=== PATIENT | female | born 1945 | race Caucasian/White ===

== ENCOUNTER → 2016-11-19 | Outpatient (CLI) | payer MEDICARE ==
[~2016-11-19] MED LIST: CARAFATE1 G1 PO; CELEXA20 MG PO; COUMADIN5 M2 PO; LISINOPRIL-HYDR1 TA1 PO; LISINOPRIL40 MG PO; NORVASC10 MG PO; ORETIC25 MG PO; PRILOSEC40 M1 PO; VITAMIN D31000 IU PO; ZOCOR40 MG PO
== END | disposition home or self-care (01) ==
LOC: RAD 10:36
DX: R06.02 Shortness of breath (principal); I10 Essential (primary) hypertension; Z86.79 Personal history of other diseases of the circulatory system

== ENCOUNTER → 2018-05-16 | Outpatient (CLI) | payer MEDICARE ==
[~2018-05-16] MED LIST changes: +ASPIRIN81 M1 PO; +CITALOPRAM20 MG PO; +DILTIAZEM CD240 MG PO; +LISINOPRIL20 MG PO; +ZESTORETIC 20-1 EACH PO
== END | disposition home or self-care (01) ==
LOC: CARD 11:32
DX: I48.91 Unspecified atrial fibrillation (principal); I65.1 Occlusion and stenosis of basilar artery; I51.7 Cardiomegaly

== ENCOUNTER 2020-05-27 21:10 | Emergency (ER) | payer MEDICARE ==
[~2020-05-27] VITALS: Ht 160 cm; Wt 98.9 kg
[2020-05-27 21:14] VITALS: BP 138/64
[2020-05-27] MEDS ORDERED: HYDROCODONE-AC1 EAC1 PO (23:30)
== END 2020-05-27 23:44 | disposition home or self-care (01) ==
LOC: ED 21:10
DX: M54.5 Low back pain (principal); M25.552 Pain in left hip; Z90.49 Acquired absence of other specified parts of digestive tract; Z90.710 Acquired absence of both cervix and uterus; Z98.42 Cataract extraction status, left eye; Z98.41 Cataract extraction status, right eye; Z79.82 Long term (current) use of aspirin; Z88.0 Allergy status to penicillin; Z88.2 Allergy status to sulfonamides; W18.30XA Fall on same level, unspecified, initial encounter; Y93.9 Activity, unspecified; Y92.89 Other specified places as the place of occurrence of the external cause; Y99.9 Unspecified external cause status